=== PATIENT | male | born 1980 | race Caucasian/White ===

== ENCOUNTER → 2019-05-03 | Outpatient (CLI) | payer OTHER ==
--- NOTE | 2019-05-03 11:09 | PCVCIMAG ---
APPROVED REPORT Study performed: 05/03/2019 09:53:05 Exam: Stress Echocardiogram Indication: Syncope, L ARM PAIN Patient Location: Echo lab Stress Nurse: Kirstie Sheikh RN Room #: 2 Status: routine Ht: 5 ft 5 in HR: 83 bpm BP: 118/78 mmHg Rhythm: NSR Medical History Cardiac Risk Factors: Dyslipidemia Previous Cardiac Procedures: none Pretest Chest Pain Characteristics: No chest pain Exercise History: Physically active Procedure The patient underwent an Exercise Stress Test using the Reinier Protocol. Blood pressure, heart rate, and EKG were monitored. An Echocardiogram was performed by energy technician in four stages in quad fashion. At peak stress, four selected images were obtained and placed side by side with resting images for comparison. Stress Test Details Stress Test: Exercise stress testing was performed using a Reinier protocol. HR Resting HR: 83 bpmMax Heart Rate (APMHR): 182 bpm Max HR Achieved: 176 bpmTarget HR (85% APMHR): 154 bpm % of APMHR: 96 Recovery HR: 97 bpm HR response to stress: Normal HR response to stress BP Resting BP: 118/78 mmHg Max BP: 180/70 mmHg Recovery BP: 160/80 mmHg BP response to stress: Normal blood pressure response to stress. ECG Resting ECG: Sinus Rhythm Stress ECG: Sinus Rhythm ST Change: Non-ischemic Maximum ST Deviation: -0.75 mm Arrhythmia: None Recovery ECG: Sinus Rhythm Recovery ST Change: Non-ischemic Recovery ST Deviation: -0.75 mm Recovery Arrhythmia: None Clinical Reason for Termination: Maximal effort Stress Symptoms: none Exercise duration: 12 min 00 sec Highest Stage Achieved: Stage 4: 4.2 mph at 16% grade. Exercise capacity: 13.7 METs Overall Exercise Capacity for Age: Good Scale: Active Angina Score: None No complications. Stress ECG Conclusion The patient exercised according to the REINIER protocol for 12:00 mins; achieving a work level of 13.7 METS. The resting heart rate of 83 bpm kris to a maximum heart rate of 176 bpm. This value represent 96% of the maximal, age-predicted heart rate. The resting blood pressure of 118/78 mmHg, kris to a maximum blood pressure of 180/70 mmHg. The exercise test was stopped due to fatigue. Telles Treadmill Score is 15.8 which is Low risk. Pre-Stress Echo The resting Echocardiogram showed normal left ventricular contractility with an estimated Ejection Fraction of about 55-60%. Normal wall motion in all segments on baseline images. Post-Stress Echo The stress Echocardiogram showed normal left ventricular contractility with an estimated Ejection Fraction of about 65-70%. Normal augmentation of wall motion in all segments on post stress images. Clinical No clinical or ECG evidence for ischemia. 1. low risk study Conclusion Clinical Response: Non-ischemic Exercise Capacity: Superior Stress ECG Response: Non-ischemic Stress Echo Images: Non-ischemic No clinical, EKG or echocardiographic evidence for ischemia. No echocardiographic evidence for exercise induced ischemia. Normal stress echocardiogram with maximal exercise stress. No prior study available for comparison. <Conclusion> No clinical, EKG or echocardiographic evidence for ischemia. No echocardiographic evidence for exercise induced ischemia. Normal stress echocardiogram with maximal exercise stress.
== END | disposition home or self-care (01) ==
LOC: PCVCIMAG 09:49
PROVIDERS: ATTEND Internal Medicine
DX: R55 Syncope and collapse (principal); M79.602 Pain in left arm; R00.2 Palpitations; E78.5 Hyperlipidemia, unspecified; Z79.899 Other long term (current) drug therapy
CPT/HCPCS: 93325; 93351